=== PATIENT | female | born 1955 | race Caucasian/White ===

== ENCOUNTER 2023-12-31 06:43 | Day surgery (SDC) | payer MEDICARE, BC ==
[2023-12-31] MEDS ORDERED: Midazolam 1 MG/ML 2 ML SDV ONE (06:56)
[2023-12-31] MEDS ORDERED: fentaNYL 50 MCG/ML SDV ONE (06:56)
[2023-12-31] MEDS ORDERED: Propofol 200 MG/20 ML SDV ONE ×2 (06:56→07:48)
[2023-12-31] MEDS ORDERED: Lactated Ringers 1,000 ML IV SCH (07:15)
[2023-12-31] MEDS: Dextrose 5%-Lactated Ringers 1,000 ML IV SCH (07:25)
== END 2023-12-31 09:25 | disposition home or self-care (01) ==
LOC: JP.SDS 06:43
PROVIDERS: ATTEND Family Medicine
DX: Z12.11 Encounter for screening for malignant neoplasm of colon (principal); R19.5 Other fecal abnormalities; D12.2 Benign neoplasm of ascending colon; D12.3 Benign neoplasm of transverse colon; K62.1 Rectal polyp; I10 Essential (primary) hypertension; E11.9 Type 2 diabetes mellitus without complications; F17.200 Nicotine dependence, unspecified, uncomplicated
CPT/HCPCS: 45380; 45385; 82947; J2250; J2704; J3010; J7121; 88305